=== PATIENT | male | born 1955 | race Two or more races ===

== ENCOUNTER 2019-06-07 18:03 | Inpatient (IN) | payer MEDICARE, BC ==
[~2019-06-07] VITALS: Ht 182.9 cm; Wt 99.9 kg
[2019-06-07] MEDS ORDERED: ONDANSETRON HCL 4MG/2ML INJ IV STA (18:22)
[2019-06-07] MEDS ORDERED: PIPERACILLIN/TAZ 3.375G PREMIX 50 ML IV ONE (18:30)
[2019-06-07] MEDS ORDERED: SODIUM CHLORIDE 0.9% 1000ML BAG (SEPSIS BOLUS) IV ONE (18:30)
[2019-06-07] MEDS ORDERED: VANCOMYCIN 1 G PREMIX 200 ML IV ONE (18:30)
[2019-06-07 18:48] LABS: HEMATOCRIT. 27.7 % (42.0-52.0); MEAN CORPUSCULAR HEMOGLOBIN 24.7 pg (28.0-32.0); MEAN CORPUSCULAR VOLUME 75.5 fL (80.0-94.0); MEAN PLATELET VOLUME 7.6 fl (7.4-10.4); PLATELET 307 x1000/uL (130-400); RED BLOOD CELL COUNT 3.67 mill/uL (4.7-6.1); RED CELL DISTRIBUTION WIDTH 19.5 % (11.6-14.6)
[2019-06-07 18:54] LABS: INR 1.1; PROTHROMBIN TIME 11.6 sec (9.6-11.0)
[2019-06-07 18:55] LABS: CHLORIDE 95 mEq/L (98-107)
[2019-06-07 19:14] LABS: PLATELET ESTIMATE NORMAL
[2019-06-07] MEDS ORDERED: ACETAMINOPHEN 650MG/20.3ML UDC PO ONE (20:15)
[2019-06-07] MEDS ORDERED: MAGNESIUM/ALUMINUM HYDROXIDE/SIMETHICONE 30ML UDC PO PRN (23:45)
[2019-06-07] MEDS ORDERED: PIPERACILLIN/TAZ 3.375G PREMIX 50 ML IV SCH (23:45)
[2019-06-07] MEDS ORDERED: DEXTROSE 50% WATER 50ML SYRINGE IV PRN (23:45)
[2019-06-07] MEDS ORDERED: VANCOMYCIN 1 G PREMIX 200 ML IV SCH (23:45)
[2019-06-07] MEDS ORDERED: GUAIFENESIN 200MG/10ML SUGAR FREE UDC PO PRN (23:45)
[2019-06-07] MEDS ORDERED: DIPHENHYDRAMINE 50MG/ML VIAL IV PRN (23:45)
[2019-06-07] MEDS ORDERED: CLONIDINE 0.1MG TABLET PO PRN (23:45)
[2019-06-07] MEDS ORDERED: ACETAMINOPHEN 325MG TABLET PO PRN (23:45)
[2019-06-07] MEDS ORDERED: ONDANSETRON HCL 4MG/2ML INJ IV PRN (23:45)
[2019-06-08] VITALS: BP 113/40
[2019-06-08 04:00] VITALS: BP 127/48
[2019-06-08 06:18] LABS: HEMATOCRIT. 27.2 % (42.0-52.0); HEMOGLOBIN. 8.8 g/dL (14.0-18.0); MEAN CORPUSCULAR HEMOGLOBIN 24.5 pg (28.0-32.0); MEAN CORPUSCULAR VOLUME 75.9 fL (80.0-94.0); MEAN PLATELET VOLUME 7.8 fl (7.4-10.4); PLATELET 303 x1000/uL (130-400); RED BLOOD CELL COUNT 3.59 mill/uL (4.7-6.1); RED CELL DISTRIBUTION WIDTH 20.1 % (11.6-14.6)
[2019-06-08 08:00] VITALS: BP 133/53
[2019-06-08] MEDS: BLOOD SUGAR DIAGNOSTIC STRIP TEST SCH ×4 (08:22→20:40)
[2019-06-08] MEDS: ENOXAPARIN 30MG/0.3ML SYR SUBCUT SCH (08:51)
[2019-06-08] MEDS: PIPERACILLIN/TAZOBACTAM 2.25 G in DEXTROSE 5% WATER 50 ML IV SCH ×2 (08:52→20:32)
[2019-06-08] MEDS: INSULIN LISPRO 100 UNITS/ML SUBCUT SCH ×4 (08:57→20:40)
[2019-06-08] MEDS ORDERED: IRBE300T18 MT (10:14)
[2019-06-08] MEDS ORDERED: INSLIS SUBCUT (10:14)
[2019-06-08] MEDS ORDERED: FURO40TA5 MT (10:14)
[2019-06-08] MEDS ORDERED: INSU300I SQ (10:14)
[2019-06-08] MEDS ORDERED: PREG225C MT (10:14)
[2019-06-08] MEDS ORDERED: AMLO10TA4 MT (10:14)
[2019-06-08] MEDS ORDERED: ATOR-2 MT (10:14)
[2019-06-08] MEDS ORDERED: PIOG45TA64 MT (10:14)
[2019-06-08 12:00] VITALS: BP 128/58
[2019-06-08] MEDS: SODIUM CHLORIDE 0.9% INJ 3ML FLUSH IVF SCH (13:13)
[2019-06-08 13:36] LABS: PLATELET ESTIMATE NORMAL
[2019-06-08] MEDS ORDERED: VANCOMYCIN 1 G PREMIX 200 ML IV SCH (15:00)
[2019-06-08 16:00] VITALS: BP 134/76
[2019-06-08 20:00] VITALS: BP 126/48
[2019-06-09] VITALS: BP 119/62
[2019-06-09 04:00] VITALS: BP 118/55
[2019-06-09] MEDS: SODIUM CHLORIDE 0.9% INJ 3ML FLUSH IVF SCH ×3 (06:30→21:36)
[2019-06-09] MEDS: BLOOD SUGAR DIAGNOSTIC STRIP TEST SCH ×4 (06:31→21:36)
[2019-06-09 06:35] LABS: HEMATOCRIT. 26.4 % (42.0-52.0); HEMOGLOBIN. 8.9 g/dL (14.0-18.0); MEAN CORPUSCULAR HEMOGLOBIN 25.7 pg (28.0-32.0); MEAN PLATELET VOLUME 7.7 fl (7.4-10.4); PLATELET 352 x1000/uL (130-400); RED BLOOD CELL COUNT 3.48 mill/uL (4.7-6.1); RED CELL DISTRIBUTION WIDTH 19.3 % (11.6-14.6)
[2019-06-09 08:00] VITALS: BP 131/58
[2019-06-09] MEDS: ENOXAPARIN 30MG/0.3ML SYR SUBCUT SCH (09:01)
[2019-06-09] MEDS: PIPERACILLIN/TAZOBACTAM 2.25 G in DEXTROSE 5% WATER 50 ML IV SCH (09:01)
[2019-06-09] MEDS: INSULIN LISPRO 100 UNITS/ML SUBCUT SCH ×4 (09:03→21:00)
[2019-06-09 12:00] VITALS: BP 101/65
[2019-06-09 13:43] LABS: PLATELET ESTIMATE NORMAL
[2019-06-09] MEDS: HYDROCODONE/ACETAMINOPHEN 5/325MG TABLET PO PRN ×2 (14:30→22:09)
[2019-06-09 16:00] VITALS: BP 144/68
[2019-06-09] MEDS: MEROPENEM 500 MG in SODIUM CHLORIDE 0.9% 50 ML IV SCH (17:56)
[2019-06-09 20:00] VITALS: BP 110/55
[2019-06-09] MEDS ORDERED: EPOETIN ALFA 10000UNITS/ML VIAL SUBCUT SCH (21:00)
[2019-06-10] VITALS: BP 115/58
[2019-06-10 04:00] VITALS: BP 125/62
[2019-06-10] MEDS: BLOOD SUGAR DIAGNOSTIC STRIP TEST SCH ×4 (06:38→21:01)
[2019-06-10] MEDS: SODIUM CHLORIDE 0.9% INJ 3ML FLUSH IVF SCH ×2 (06:38→21:07)
[2019-06-10 08:16] VITALS: BP 154/74
[2019-06-10] MEDS: INSULIN LISPRO 100 UNITS/ML SUBCUT SCH ×4 (10:10→21:07)
[2019-06-10] MEDS: ENOXAPARIN 30MG/0.3ML SYR SUBCUT SCH (10:11)
[2019-06-10 12:00] VITALS: BP 161/73
[2019-06-10 16:00] VITALS: BP 148/58
[2019-06-10 16:24] LABS: HEMATOCRIT. 28.3 % (42.0-52.0); HEMOGLOBIN. 8.9 g/dL (14.0-18.0); MEAN CORPUSCULAR HEMOGLOBIN 24.2 pg (28.0-32.0); MEAN PLATELET VOLUME 7.9 fl (7.4-10.4); PLATELET 337 x1000/uL (130-400); RED BLOOD CELL COUNT 3.67 mill/uL (4.7-6.1); RED CELL DISTRIBUTION WIDTH 19.3 % (11.6-14.6)
[2019-06-10] MEDS: MEROPENEM 500 MG in SODIUM CHLORIDE 0.9% 50 ML IV SCH (16:45)
[2019-06-10] MEDS ORDERED: VANCOMYCIN 750 MG PREMIX 150 ML IV SCH (19:00)
[2019-06-10 20:00] VITALS: BP 143/58
[2019-06-10 20:39] LABS: NUCLEATED RED BLOOD CELLS 1 /100 WBC; PLATELET ESTIMATE NORMAL
[2019-06-11] VITALS (7 sets, daily range): BP systolic 126–158; BP diastolic 50–66
[2019-06-11] MEDS: SODIUM CHLORIDE 0.9% INJ 3ML FLUSH IVF SCH (06:08)
[2019-06-11] MEDS: BLOOD SUGAR DIAGNOSTIC STRIP TEST SCH ×2 (06:09→13:14)
[2019-06-11] MEDS ORDERED: LIDOCAINE HCL 1% 20ML VIAL (Pyxis) INJ ONE (08:09)
[2019-06-11] MEDS: INSULIN LISPRO 100 UNITS/ML SUBCUT SCH ×2 (08:10→13:57)
[2019-06-11] MEDS: ENOXAPARIN 30MG/0.3ML SYR SUBCUT SCH (09:00)
[2019-06-11] MEDS ORDERED: IOHEXOL-300 50 ML BOTTLE IV ONE (09:45)
[2019-06-11 10:02] LABS: BASOPHILS % 1.1 % (0.0-2.0); HEMATOCRIT. 29.3 % (42.0-52.0); HEMOGLOBIN. 9.3 g/dL (14.0-18.0); LYMPHOCYTES % 31.6 % (20.0-50.0); MEAN CORPUSCULAR HEMOGLOBIN 24.2 pg (28.0-32.0); MEAN CORPUSCULAR VOLUME 76.4 fL (80.0-94.0); MEAN PLATELET VOLUME 7.8 fl (7.4-10.4); MONOCYTES % 13.2 % (2.0-8.0); NEUTROPHILS % 47.1 % (40.0-76.0); PLATELET 358 x1000/uL (130-400); RED BLOOD CELL COUNT 3.84 mill/uL (4.7-6.1); RED CELL DISTRIBUTION WIDTH 19.8 % (11.6-14.6)
[2019-06-11] MEDS: MEROPENEM 500 MG in SODIUM CHLORIDE 0.9% 50 ML IV SCH (13:56)
== END 2019-06-11 16:29 | disposition home or self-care (01) | DRG 853 ==
LOC: ER 18:03 → EDBEDREQTM 21:45 → EDBEDREQSVC 21:45 → EDBEDREQ 21:45 → ENRESERV 23:19 → 7WST 23:45
PROVIDERS: ADMIT Internal Medicine; ATTEND Internal Medicine
PROC: 5A1D70Z Performance of Urinary Filtration, Intermittent, Less than 6 Hours Per Day (ICD-10-PCS; 2019-06-08)
PROC: 0QBL0ZZ Excision of Right Tarsal, Open Approach (ICD-10-PCS; principal; 2019-06-09)
PROC: 5A1D70Z Performance of Urinary Filtration, Intermittent, Less than 6 Hours Per Day (ICD-10-PCS; 2019-06-09)
PROC: 02HV33Z Insertion of Infusion Device into Superior Vena Cava, Percutaneous Approach (ICD-10-PCS; 2019-06-11)
PROC: B5181ZA Fluoroscopy of Superior Vena Cava using Low Osmolar Contrast, Guidance (ICD-10-PCS; 2019-06-11)
PROC: B548ZZA Ultrasonography of Superior Vena Cava, Guidance (ICD-10-PCS; 2019-06-11)
DX: A41.02 Sepsis due to Methicillin resistant Staphylococcus aureus (principal); N18.6 End stage renal disease; I12.0 Hypertensive chronic kidney disease with stage 5 chronic kidney disease or end stage renal disease; L97.409 Non-pressure chronic ulcer of unspecified heel and midfoot with unspecified severity; E87.1 Hypo-osmolality and hyponatremia; L03.119 Cellulitis of unspecified part of limb; L97.419 Non-pressure chronic ulcer of right heel and midfoot with unspecified severity; M86.8X8 Other osteomyelitis, other site; I69.354 Hemiplegia and hemiparesis following cerebral infarction affecting left non-dominant side; E11.69 Type 2 diabetes mellitus with other specified complication; E11.621 Type 2 diabetes mellitus with foot ulcer; E11.40 Type 2 diabetes mellitus with diabetic neuropathy, unspecified; E11.22 Type 2 diabetes mellitus with diabetic chronic kidney disease; D64.9 Anemia, unspecified; E11.51 Type 2 diabetes mellitus with diabetic peripheral angiopathy without gangrene; L97.509 Non-pressure chronic ulcer of other part of unspecified foot with unspecified severity; Z99.2 Dependence on renal dialysis; Z83.3 Family history of diabetes mellitus; Z89.411 Acquired absence of right great toe; Z91.15 Patient's noncompliance with renal dialysis; Z79.899 Other long term (current) drug therapy
CPT/HCPCS: 36415; 36573; 71045; 73610; 73630; 80048; 80202; 82550; 82962; 83036; 83605; 84145; 84443; 84484; 85651; 86140; 87070; 87077; 87186; 88304; 88311; 93005; 93306; 96374; 99285; C1725; J0885; J1650; J1815; J2185; J2405; J2543; J3370; J3490; J7030; J7060; Q9967

== ENCOUNTER 2019-09-11 23:00 | Inpatient (IN) | payer BC, MEDICARE, OTHER ==
[~2019-09-11] VITALS: Ht 182.9 cm; Wt 84.8 kg
[~2019-09-11 23:00] MED LIST: AMLO10TA4 MT; ATOR-2 MT; FURO40TA5 MT; INSLIS SUBCUT; INSU300I SQ; IRBE300T18 MT; PIOG45TA64 MT; PREG225C MT
[2019-09-12] MEDS ORDERED: VANCOMYCIN 1 G PREMIX 200 ML IV SCH (01:30)
[2019-09-12 01:48] LABS: EOSINOPHILS % 2.3 % (0.0-5.0); HEMATOCRIT. 27.6 % (42.0-52.0); HEMOGLOBIN. 8.5 g/dL (14.0-18.0); LYMPHOCYTES % 14.3 % (20.0-50.0); MEAN CORPUSCULAR HEMOGLOBIN 22.8 pg (28.0-32.0); MEAN CORPUSCULAR VOLUME 74.1 fL (80.0-94.0); MEAN PLATELET VOLUME 8.1 fl (7.4-10.4); MONOCYTES % 9.9 % (2.0-8.0); NEUTROPHILS % 72.5 % (40.0-76.0); PLATELET 379 x1000/uL (130-400); RED BLOOD CELL COUNT 3.72 mill/uL (4.7-6.1); RED CELL DISTRIBUTION WIDTH 22.8 % (11.6-14.6)
[2019-09-12 01:54] LABS: CHLORIDE 99 mEq/L (98-107)
[2019-09-12 09:30] VITALS: BP 138/47
[2019-09-12] MEDS ORDERED: ACETAMINOPHEN 325MG TABLET PO PRN (10:30)
[2019-09-12] MEDS ORDERED: PIPERACILLIN/TAZOBACTAM 3.375 G in DEXT 5% WATER 100 ML IV SCH (10:30)
[2019-09-12] MEDS ORDERED: ONDANSETRON HCL 4MG/2ML INJ IV PRN (10:30)
[2019-09-12] MEDS ORDERED: DEXTROSE 50% WATER 50ML SYRINGE IV PRN (10:30)
[2019-09-12 12:00] VITALS: BP 137/51
[2019-09-12] MEDS ORDERED: ASPI-1393 MT (12:02)
[2019-09-12] MEDS ORDERED: HYDR-4133 PO (12:02)
[2019-09-12] MEDS ORDERED: EZET10TA13 PO (12:02)
[2019-09-12] MEDS: BLOOD SUGAR DIAGNOSTIC STRIP TEST SCH ×3 (12:20→21:43)
[2019-09-12] MEDS ORDERED: PIPERACILLIN/TAZOBACTAM 2.25 G in DEXTROSE 5% WATER 50 ML IV SCH (13:30)
[2019-09-12] MEDS ORDERED: IOHEXOL-350 100 ML BOTTLE ONE (14:15)
[2019-09-12] MEDS: INSULIN LISPRO 100 UNITS/ML SUBCUT SCH ×3 (15:13→22:08)
[2019-09-12] MEDS: HYDROCODONE/ACETAMINOPHEN 5/325MG TABLET PO PRN (15:22)
[2019-09-12 16:00] VITALS: BP 139/55
[2019-09-12 17:09] LABS: CLARITY URINE CLEAR (CLEAR); COLOR URINE YELLOW (YELLOW); KETONES URINE NEGATIVE (NEGATIVE); LEUKOCYTE ESTERASE URINE NEGATIVE (NEGATIVE); NITRITE URINE NEGATIVE (NEGATIVE); OCCULT BLOOD URINE 1+ (NEGATIVE); PROTEIN URINE 2+ (NEGATIVE); SPECIFIC GRAVITY URINE 1.015 (1.005-1.030); UROBILINOGEN URINE 0.2 E.U./dL (0.2-1.0)
[2019-09-12 17:19] LABS: *AMPHETAMINES SCREEN URINE NEGATIVE (NEGATIVE); *BARBITURATES SCREEN URINE NEGATIVE (NEGATIVE)
[2019-09-12 17:20] LABS: *BENZODIAZEPINES SCREEN URINE NEGATIVE (NEGATIVE); *COCAINE SCREEN URINE NEGATIVE (NEGATIVE); CANNABINOID URINE SCREEN PRESUMTIVE POSITIVE (NEGATIVE); METHADONE URINE SCREEN NEGATIVE (NEGATIVE); OPIATES URINE SCREEN PRESUMTIVE POSITIVE (NEGATIVE); PHENCYCLIDINE URINE SCREEN NEGATIVE (NEGATIVE)
[2019-09-12] MEDS: PIPERACILLIN/TAZOBACTAM 2.25 G in DEXTROSE 5% WATER 50 ML IV SCH ×2 (17:31→21:33)
[2019-09-12 20:00] VITALS: BP 136/57
[2019-09-12] MEDS: EPOETIN ALFA 10000UNITS/ML VIAL SUBCUT SCH (21:33)
[2019-09-12] MEDS: MORPHINE SULFATE 2 MG/ML CPJ (NOT FOR IM USE) IV PRN (21:34)
[2019-09-13] VITALS: BP 136/58
[2019-09-13 04:00] VITALS: BP 145/63
[2019-09-13] MEDS: BLOOD SUGAR DIAGNOSTIC STRIP TEST SCH ×4 (07:27→21:00)
[2019-09-13] MEDS: INSULIN LISPRO 100 UNITS/ML SUBCUT SCH ×4 (07:28→23:03)
[2019-09-13 07:36] LABS: PHOSPHORUS 2.2 mg/dL (2.5-4.9)
[2019-09-13 08:00] VITALS: BP 126/56
[2019-09-13 08:59] LABS: EOSINOPHILS % 4.4 % (0.0-5.0); HEMATOCRIT. 26.8 % (42.0-52.0); HEMOGLOBIN. 8.1 g/dL (14.0-18.0); MEAN CORPUSCULAR HEMOGLOBIN 22.4 pg (28.0-32.0); MEAN CORPUSCULAR VOLUME 74.1 fL (80.0-94.0); MEAN PLATELET VOLUME 8.3 fl (7.4-10.4); MONOCYTES % 9.1 % (2.0-8.0); NEUTROPHILS % 58.5 % (40.0-76.0); PLATELET 370 x1000/uL (130-400); RED BLOOD CELL COUNT 3.62 mill/uL (4.7-6.1); RED CELL DISTRIBUTION WIDTH 22.8 % (11.6-14.6)
[2019-09-13 12:00] VITALS: BP 142/68
[2019-09-13] MEDS ORDERED: VANCOMYCIN 1500MG in DEXTROSE 5% WATER 250ML IV SCH (12:00)
[2019-09-13] MEDS ORDERED: PIPERACILLIN/TAZOBACTAM 2.25 G in DEXTROSE 5% WATER 50 ML IV SCH (14:00)
[2019-09-13] MEDS ORDERED: SODIUM PHOS,M-BASIC-D-BASIC 15 MM in DEXT 5% WATER 245 ML IV NR (15:30)
[2019-09-13 16:00] VITALS: BP 147/66
[2019-09-13] MEDS: CEFTAZIDIME PENTAHYDRATE 2 G in DEXT 5% WATER 100 ML IV SCH (18:36)
[2019-09-13 19:29] LABS: PLATELET ESTIMATE NORMAL
[2019-09-13 20:00] VITALS: BP 138/65
[2019-09-13] MEDS: MORPHINE SULFATE 2 MG/ML CPJ (NOT FOR IM USE) IV PRN (21:45)
[2019-09-13] MEDS: COLISTIMETHATE SODIUM 130 MG in SODIUM CHLORIDE 0.9% 100 ML IV SCH (22:49)
[2019-09-14] VITALS (7 sets, daily range): BP systolic 114–164; BP diastolic 60–71
[2019-09-14 01:14] LABS: INR 1.3; PROTHROMBIN TIME 12.8 sec (9.6-11.0)
[2019-09-14 04:33] LABS: BASOPHILS % 1.1 % (0.0-2.0); EOSINOPHILS % 3.5 % (0.0-5.0); HEMATOCRIT. 26.3 % (42.0-52.0); HEMOGLOBIN. 8.1 g/dL (14.0-18.0); LYMPHOCYTES % 21.7 % (20.0-50.0); MEAN CORPUSCULAR HEMOGLOBIN 22.7 pg (28.0-32.0); MEAN CORPUSCULAR VOLUME 73.8 fL (80.0-94.0); MEAN PLATELET VOLUME 7.8 fl (7.4-10.4); MONOCYTES % 8.6 % (2.0-8.0); NEUTROPHILS % 65.1 % (40.0-76.0); PLATELET 327 x1000/uL (130-400); RED BLOOD CELL COUNT 3.56 mill/uL (4.7-6.1); RED CELL DISTRIBUTION WIDTH 22.5 % (11.6-14.6)
[2019-09-14 04:38] LABS: PHOSPHORUS 2.7 mg/dL (2.5-4.9)
[2019-09-14] MEDS: BLOOD SUGAR DIAGNOSTIC STRIP TEST SCH ×4 (07:20→21:36)
[2019-09-14] MEDS: INSULIN LISPRO 100 UNITS/ML SUBCUT SCH ×4 (07:50→21:00)
[2019-09-14] MEDS ORDERED: MAGNESIUM 1 G PREMIX 100 ML IV NR (14:00)
[2019-09-14] MEDS ORDERED: IPRATROPIUM/ALBUTEROL 0.5-3(2.5)MG/3ML NEB HHN PRN (14:45)
[2019-09-14] MEDS ORDERED: LACTULOSE 20G/30ML UDC PO PRN (14:45)
[2019-09-14] MEDS ORDERED: LORAZEPAM 2MG/ML CPJ IV PRN (14:45)
[2019-09-14] MEDS ORDERED: DIPHENHYDRAMINE 50MG/ML VIAL IV PRN (14:45)
[2019-09-14] MEDS: COLISTIMETHATE SODIUM 130 MG in SODIUM CHLORIDE 0.9% 100 ML IV SCH (20:20)
[2019-09-14] MEDS: EPOETIN ALFA 10000UNITS/ML VIAL SUBCUT SCH (21:00)
[2019-09-15] VITALS (8 sets, daily range): BP systolic 117–167; BP diastolic 55–69
[2019-09-15] MEDS: MORPHINE SULFATE 2 MG/ML CPJ (NOT FOR IM USE) IV PRN (04:48)
[2019-09-15 05:45] LABS: BASOPHILS % 1.3 % (0.0-2.0); EOSINOPHILS % 3.4 % (0.0-5.0); HEMATOCRIT. 26.2 % (42.0-52.0); HEMOGLOBIN. 8.1 g/dL (14.0-18.0); LYMPHOCYTES % 27.7 % (20.0-50.0); MEAN CORPUSCULAR HEMOGLOBIN 23.1 pg (28.0-32.0); MEAN CORPUSCULAR VOLUME 75.1 fL (80.0-94.0); MEAN PLATELET VOLUME 7.5 fl (7.4-10.4); NEUTROPHILS % 58.6 % (40.0-76.0); PLATELET 289 x1000/uL (130-400); RED BLOOD CELL COUNT 3.48 mill/uL (4.7-6.1); RED CELL DISTRIBUTION WIDTH 22.9 % (11.6-14.6)
[2019-09-15 05:55] LABS: INR 1.3; PHOSPHORUS 2.8 mg/dL (2.5-4.9); PROTHROMBIN TIME 13.2 sec (9.6-11.0)
[2019-09-15 05:58] LABS: T4 FREE 1.16 ng/dL (0.76-1.46)
[2019-09-15] MEDS: BLOOD SUGAR DIAGNOSTIC STRIP TEST SCH ×4 (07:26→20:16)
[2019-09-15] MEDS: INSULIN LISPRO 100 UNITS/ML SUBCUT SCH ×4 (07:26→20:25)
[2019-09-15 12:40] LABS: HEMATOCRIT 28.4 % (42.0-52.0); HEMOGLOBIN 8.8 g/dL (14.0-18.0)
[2019-09-15] MEDS: PANTOPRAZOLE SODIUM 40 MG/VIAL IV SCH (18:13)
[2019-09-15] MEDS: CEFTAZIDIME PENTAHYDRATE 2 G in DEXT 5% WATER 100 ML IV SCH (18:13)
[2019-09-15] MEDS: HYDROCODONE/ACETAMINOPHEN 5/325MG TABLET PO PRN (20:14)
[2019-09-15] MEDS: COLISTIMETHATE SODIUM 130 MG in SODIUM CHLORIDE 0.9% 100 ML IV SCH (20:16)
[2019-09-15] MEDS ORDERED: VANCOMYCIN 1 G PREMIX 200 ML IV NR (22:00)
[2019-09-15] MEDS: DEXT 5%/0.9% NACL 1,000 ML IV SCH (23:30)
[2019-09-16] VITALS: BP 159/64
[2019-09-16 00:02] LABS: HEMATOCRIT 30.3 % (42.0-52.0); HEMOGLOBIN 9.6 g/dL (14.0-18.0)
[2019-09-16] MEDS: BLOOD SUGAR DIAGNOSTIC STRIP TEST SCH ×4 (06:38→21:00)
[2019-09-16] MEDS: INSULIN LISPRO 100 UNITS/ML SUBCUT SCH ×4 (06:38→21:00)
[2019-09-16 07:16] LABS: HEMATOCRIT. 29.9 % (42.0-52.0); HEMOGLOBIN. 9.6 g/dL (14.0-18.0); MEAN CORPUSCULAR HEMOGLOBIN 24.1 pg (28.0-32.0); MEAN PLATELET VOLUME 8.1 fl (7.4-10.4); PLATELET 267 x1000/uL (130-400); RED BLOOD CELL COUNT 3.98 mill/uL (4.7-6.1); RED CELL DISTRIBUTION WIDTH 22.6 % (11.6-14.6)
[2019-09-16 07:39] LABS: PHOSPHORUS 2.9 mg/dL (2.5-4.9)
[2019-09-16 08:00] VITALS: BP 171/68
[2019-09-16 13:42] LABS: PLATELET ESTIMATE NORMAL
[2019-09-16] MEDS: PANTOPRAZOLE SODIUM 40 MG/VIAL IV SCH (15:41)
[2019-09-16] MEDS ORDERED: BUPIVACAINE HCL/PF 0.25% (2.5MG/ML) 10ML ONE ×2 (15:46→22:03)
[2019-09-16] MEDS ORDERED: VANCOMYCIN HCL 1 GM/VIAL ONE (15:47)
[2019-09-16] MEDS ORDERED: BACITRACIN 15GM TUBE TOP ONE (15:47)
[2019-09-16] MEDS ORDERED: BACITRACIN 50,000 UNITS/VIAL ONE (15:48)
[2019-09-16 16:00] VITALS: BP 187/77
[2019-09-16] MEDS ORDERED: NITROGLYCERIN OINT 1GM/INCH UDPKT TD NR (16:52)
[2019-09-16] MEDS ORDERED: HYDRALAZINE 10 MG in SODIUM CHLORIDE 0.9% 49.5 ML IV NR (18:00)
[2019-09-16 20:00] VITALS: BP 180/75
[2019-09-16] MEDS: COLISTIMETHATE SODIUM 130 MG in SODIUM CHLORIDE 0.9% 100 ML IV SCH (20:00)
[2019-09-16] MEDS: MORPHINE SULFATE 2 MG/ML CPJ (NOT FOR IM USE) IV PRN (20:57)
[2019-09-16] MEDS: EPOETIN ALFA 10000UNITS/ML VIAL SUBCUT SCH (21:00)
[2019-09-16] MEDS ORDERED: MIDAZOLAM HCL 2 MG/2 ML VIAL ONE (21:22)
[2019-09-16] MEDS ORDERED: FENTANYL CITRATE/PF 50MCG/ML 2ML VIAL ONE (21:22)
[2019-09-16] MEDS ORDERED: PROPOFOL 200MG/20ML VIAL IV ONE (21:25)
[2019-09-16] MEDS ORDERED: LIDOCAINE HCL 1% 20ML VIAL (Pyxis) INJ ONE (21:25)
[2019-09-16] MEDS ORDERED: PHENYLEPHRINE HCL 10 MG/ML 1ML (IV VIAL) IV ONE (21:27)
[2019-09-16] MEDS ORDERED: CEFAZOLIN SODIUM 1000MG/VIAL ONE (21:42)
[2019-09-16] MEDS ORDERED: ONDANSETRON HCL 4MG/2ML INJ ONE (21:56)
[2019-09-16] MEDS ORDERED: DEXAMETHASONE 4MG/ML 1ML VIAL ONE (21:57)
[2019-09-16] MEDS ORDERED: SODIUM CHLORIDE 0.9% 10ML VIAL ONE (22:00)
[2019-09-16] MEDS ORDERED: EPHEDRINE SULFATE 50MG/ML VIAL ONE (22:00)
[2019-09-16] MEDS ORDERED: HYDROMORPHONE HCL/PF 2MG/ML CPJ IV PRN (23:45)
[2019-09-16] MEDS ORDERED: HYDRALAZINE 20MG/ML VIAL IV NR (23:54)
[2019-09-17] VITALS (7 sets, daily range): BP systolic 144–156; BP diastolic 58–68
[2019-09-17] MEDS: DEXT 5%/0.9% NACL 1,000 ML IV SCH (01:20)
[2019-09-17] MEDS: MORPHINE SULFATE 2 MG/ML CPJ (NOT FOR IM USE) IV PRN ×3 (05:15→21:59)
[2019-09-17] MEDS: BLOOD SUGAR DIAGNOSTIC STRIP TEST SCH ×4 (06:58→21:58)
[2019-09-17] MEDS: INSULIN LISPRO 100 UNITS/ML SUBCUT SCH ×4 (07:58→22:55)
[2019-09-17 10:05] LABS: PHOSPHORUS 4.9 mg/dL (2.5-4.9)
[2019-09-17 10:15] LABS: HEMATOCRIT. 35.1 % (42.0-52.0); HEMOGLOBIN. 10.9 g/dL (14.0-18.0); MEAN CORPUSCULAR HEMOGLOBIN 23.8 pg (28.0-32.0); MEAN CORPUSCULAR VOLUME 76.4 fL (80.0-94.0); MEAN PLATELET VOLUME 7.6 fl (7.4-10.4); PLATELET 304 x1000/uL (130-400); RED CELL DISTRIBUTION WIDTH 23.8 % (11.6-14.6)
[2019-09-17] MEDS ORDERED: HYDROCODONE/ACETAMINOPHEN 5/325MG TABLET PO PRN (11:45)
[2019-09-17] MEDS ORDERED: MAGNESIUM 2 G PREMIX 50 ML IV SCH (14:00)
[2019-09-17] MEDS ORDERED: MAGNESIUM 1 G PREMIX 100 ML IV ONE (14:15)
[2019-09-17] MEDS: CEFTAZIDIME PENTAHYDRATE 2 G in DEXT 5% WATER 100 ML IV SCH (17:03)
[2019-09-17] MEDS: HYDROCORTISONE 1% CREAM 30GM TOP PRN (17:03)
[2019-09-17] MEDS: COLISTIMETHATE SODIUM 130 MG in SODIUM CHLORIDE 0.9% 100 ML IV SCH (21:58)
[2019-09-18] VITALS (7 sets, daily range): BP systolic 151–171; BP diastolic 61–75
[2019-09-18] MEDS: MORPHINE SULFATE 2 MG/ML CPJ (NOT FOR IM USE) IV PRN ×2 (06:13→20:53)
[2019-09-18] MEDS: BLOOD SUGAR DIAGNOSTIC STRIP TEST SCH ×4 (07:31→20:24)
[2019-09-18 07:36] LABS: PHOSPHORUS 4.8 mg/dL (2.5-4.9)
[2019-09-18 08:00] LABS: HEMATOCRIT. 29.6 % (42.0-52.0); HEMOGLOBIN. 9.1 g/dL (14.0-18.0); MEAN CORPUSCULAR HEMOGLOBIN 23.7 pg (28.0-32.0); MEAN CORPUSCULAR VOLUME 77.1 fL (80.0-94.0); MEAN PLATELET VOLUME 8.2 fl (7.4-10.4); PLATELET 279 x1000/uL (130-400); RED BLOOD CELL COUNT 3.84 mill/uL (4.7-6.1); RED CELL DISTRIBUTION WIDTH 23.5 % (11.6-14.6)
[2019-09-18] MEDS: INSULIN LISPRO 100 UNITS/ML SUBCUT SCH ×4 (08:19→20:24)
[2019-09-18] MEDS: CLONIDINE 0.1MG TABLET PO PRN ×2 (09:42→20:52)
[2019-09-18] MEDS: HYDROCORTISONE 1% CREAM 30GM TOP PRN (09:45)
[2019-09-18 15:00] LABS: PLATELET ESTIMATE NORMAL
[2019-09-18] MEDS: COLISTIMETHATE SODIUM 130 MG in SODIUM CHLORIDE 0.9% 100 ML IV SCH (20:18)
[2019-09-19] VITALS: BP 171/67
[2019-09-19] MEDS: NITROGLYCERIN OINT 1GM/INCH UDPKT TD SCH ×5 (00:25→23:54)
[2019-09-19 04:00] VITALS: BP 176/73
[2019-09-19 07:50] LABS: HEMATOCRIT. 27.8 % (42.0-52.0); HEMOGLOBIN. 8.7 g/dL (14.0-18.0); MEAN CORPUSCULAR VOLUME 76.5 fL (80.0-94.0); MEAN PLATELET VOLUME 7.8 fl (7.4-10.4); PLATELET 240 x1000/uL (130-400); RED BLOOD CELL COUNT 3.63 mill/uL (4.7-6.1); RED CELL DISTRIBUTION WIDTH 23.9 % (11.6-14.6)
[2019-09-19] MEDS: INSULIN LISPRO 100 UNITS/ML SUBCUT SCH ×4 (07:50→21:00)
[2019-09-19] MEDS: BLOOD SUGAR DIAGNOSTIC STRIP TEST SCH ×4 (07:55→21:00)
[2019-09-19 08:00] VITALS: BP 152/64
[2019-09-19 08:06] LABS: PHOSPHORUS 3.6 mg/dL (2.5-4.9)
[2019-09-19] MEDS: MORPHINE SULFATE 2 MG/ML CPJ (NOT FOR IM USE) IV PRN ×2 (09:36→18:45)
[2019-09-19 12:00] VITALS: BP 144/60
[2019-09-19] MEDS ORDERED: VANCOMYCIN 500 MG PREMIX 100 ML IV SCH (12:00)
[2019-09-19 13:20] LABS: PLATELET ESTIMATE NORMAL
[2019-09-19 16:12] LABS: PLATELET ESTIMATE NORMAL
[2019-09-19] MEDS: CEFTAZIDIME PENTAHYDRATE 2 G in DEXT 5% WATER 100 ML IV SCH (17:43)
[2019-09-19 20:00] VITALS: BP 159/69
[2019-09-19] MEDS: EPOETIN ALFA 10000UNITS/ML VIAL SUBCUT SCH (23:55)
[2019-09-20] VITALS: BP 162/69
[2019-09-20] MEDS: MORPHINE SULFATE 2 MG/ML CPJ (NOT FOR IM USE) IV PRN ×4 (00:21→21:41)
[2019-09-20 04:00] VITALS: BP 162/71
[2019-09-20] MEDS: NITROGLYCERIN OINT 1GM/INCH UDPKT TD SCH ×2 (06:40→12:36)
[2019-09-20] MEDS: BLOOD SUGAR DIAGNOSTIC STRIP TEST SCH ×2 (06:41→12:20)
[2019-09-20] MEDS: INSULIN LISPRO 100 UNITS/ML SUBCUT SCH ×2 (06:42→12:33)
[2019-09-20 08:02] LABS: HEMATOCRIT. 28.2 % (42.0-52.0); HEMOGLOBIN. 8.8 g/dL (14.0-18.0); MEAN CORPUSCULAR VOLUME 76.9 fL (80.0-94.0); MEAN PLATELET VOLUME 7.8 fl (7.4-10.4); PLATELET 253 x1000/uL (130-400); RED BLOOD CELL COUNT 3.67 mill/uL (4.7-6.1); RED CELL DISTRIBUTION WIDTH 23.8 % (11.6-14.6)
[2019-09-20 08:06] LABS: PHOSPHORUS 3.9 mg/dL (2.5-4.9)
[2019-09-20] MEDS: HYDROCORTISONE 1% CREAM 30GM TOP PRN (12:36)
[2019-09-20 16:37] LABS: HEPATITIS B SURFACE ANTIGEN NEGATIVE
[2019-09-20 17:07] LABS: HEPATITIS A AB IGM NEGATIVE (NEGATIVE)
[2019-09-20 20:00] VITALS: BP 168/64
[2019-09-20 20:20] VITALS: BP 168/64
[2019-09-20 20:21] LABS: PLATELET ESTIMATE NORMAL
[2019-09-20] MEDS ORDERED: VANCOMYCIN 500 MG PREMIX 100 ML IV SCH (21:00)
[2019-09-20] MEDS: EPOETIN ALFA 10000UNITS/ML VIAL SUBCUT SCH (21:40)
[2019-09-20] MEDS: CLONIDINE 0.1MG TABLET PO PRN (21:40)
[2019-09-21] VITALS: BP 173/73
[2019-09-21] MEDS ORDERED: AMLODIPINE 10MG TABLET PO SCH (03:00)
[2019-09-21 04:00] VITALS: BP 180/79
[2019-09-21] MEDS: MORPHINE SULFATE 2 MG/ML CPJ (NOT FOR IM USE) IV PRN ×2 (04:24→10:06)
[2019-09-21] MEDS ORDERED: HYDRALAZINE HCL 50MG TABLET PO SCH (06:00)
[2019-09-21 06:37] LABS: HEMATOCRIT. 28.9 % (42.0-52.0); HEMOGLOBIN. 9.1 g/dL (14.0-18.0); MEAN CORPUSCULAR HEMOGLOBIN 24.3 pg (28.0-32.0); MEAN CORPUSCULAR VOLUME 77.7 fL (80.0-94.0); PLATELET 242 x1000/uL (130-400); RED BLOOD CELL COUNT 3.73 mill/uL (4.7-6.1); RED CELL DISTRIBUTION WIDTH 23.4 % (11.6-14.6)
[2019-09-21 07:04] LABS: PHOSPHORUS 3.7 mg/dL (2.5-4.9)
[2019-09-21] MEDS: NITROGLYCERIN OINT 1GM/INCH UDPKT TD SCH ×3 (07:04→12:09)
[2019-09-21] MEDS: BLOOD SUGAR DIAGNOSTIC STRIP TEST SCH (07:05)
[2019-09-21] MEDS: INSULIN LISPRO 100 UNITS/ML SUBCUT SCH (07:05)
[2019-09-21 08:00] VITALS: BP 155/62
[2019-09-21] MEDS: HYDROCORTISONE 1% CREAM 30GM TOP PRN (10:05)
[2019-09-21 10:06] VITALS: BP 155/62
[2019-09-21 13:52] LABS: PLATELET ESTIMATE NORMAL
== END 2019-09-21 12:26 | DRG 853 ==
LOC: ER 23:00 → 6EST 09-12 01:36 → EDBEDREQSVC 09-12 01:38 → EDBEDREQ 09-12 01:38 → EDBEDREQTM 09-12 01:38 → ENRESERV 09-12 08:31
PROVIDERS: ADMIT Internal Medicine; ATTEND Internal Medicine
PROC: 30233N1 Transfusion of Nonautologous Red Blood Cells into Peripheral Vein, Percutaneous Approach (ICD-10-PCS; principal; 2019-09-14)
PROC: 0Y6H0Z1 Detachment at Right Lower Leg, High, Open Approach (ICD-10-PCS; 2019-09-16)
DX: A41.9 Sepsis, unspecified organism (principal); E43 Unspecified severe protein-calorie malnutrition; N18.6 End stage renal disease; E11.52 Type 2 diabetes mellitus with diabetic peripheral angiopathy with gangrene; E87.1 Hypo-osmolality and hyponatremia; I12.0 Hypertensive chronic kidney disease with stage 5 chronic kidney disease or end stage renal disease; L97.419 Non-pressure chronic ulcer of right heel and midfoot with unspecified severity; L03.115 Cellulitis of right lower limb; Z16.12 Extended spectrum beta lactamase (ESBL) resistance; M86.8X7 Other osteomyelitis, ankle and foot; M86.671 Other chronic osteomyelitis, right ankle and foot; I69.354 Hemiplegia and hemiparesis following cerebral infarction affecting left non-dominant side; E11.621 Type 2 diabetes mellitus with foot ulcer; J45.909 Unspecified asthma, uncomplicated; L97.519 Non-pressure chronic ulcer of other part of right foot with unspecified severity; D63.8 Anemia in other chronic diseases classified elsewhere; E11.22 Type 2 diabetes mellitus with diabetic chronic kidney disease; B96.1 Klebsiella pneumoniae [K. pneumoniae] as the cause of diseases classified elsewhere; S93.01XA Subluxation of right ankle joint, initial encounter; S93.491A Sprain of other ligament of right ankle, initial encounter; M25.471 Effusion, right ankle; M25.48 Effusion, other site; S86.011A Strain of right Achilles tendon, initial encounter; E11.51 Type 2 diabetes mellitus with diabetic peripheral angiopathy without gangrene; E11.69 Type 2 diabetes mellitus with other specified complication; B95.62 Methicillin resistant Staphylococcus aureus infection as the cause of diseases classified elsewhere; B95.2 Enterococcus as the cause of diseases classified elsewhere; Z99.2 Dependence on renal dialysis; Z68.25 Body mass index [BMI] 25.0-25.9, adult; Z89.421 Acquired absence of other right toe(s); Z79.899 Other long term (current) drug therapy; Z79.82 Long term (current) use of aspirin; Z79.4 Long term (current) use of insulin; Z83.3 Family history of diabetes mellitus; Z82.49 Family history of ischemic heart disease and other diseases of the circulatory system
CPT/HCPCS: 36415; 71045; 72191; 73590; 73706; 73718; 80048; 80061; 80202; 80305; 81003; 82270; 82962; 83036; 83540; 83550; 83605; 83735; 84100; 84145; 84439; 84443; 84484; 85014; 85018; 85049; 85384; 85651; 86140; 86705; 86709; 86803; 86850; 86900; 86920; 87340; 93005; 93970; 97162; 99285; C1893; C9113; J0360; J0690; J0713; J0770; J0885; J1100; J1815; J2250; J2270; J2370; J2405; J2543; J2704; J3010; J3370; J3475; J3490; J7040; J7042; J7050; J7060; P9016; Q9967